=== PATIENT | male | born 1970 | race Caucasian/White ===

== ENCOUNTER 2017-02-23 15:15 | Inpatient (IN) | payer OTHER ==
[~2017-02-23] VITALS: Ht 182.9 cm; Wt 94.7 kg
[2017-02-23 16:44] VITALS: BP 131/83; RESP 18
[2017-02-23 16:48] VITALS: Ht 182.9 cm; Wt 94.7 kg
[2017-02-23] MEDS ORDERED: LORA0.5T PO ×2 (17:03→17:34)
[2017-02-23] MEDS ORDERED: LEVO25TA53 PO (17:03)
[2017-02-23] MEDS ORDERED: METO10TA96 PO (17:03)
[2017-02-23] MEDS ORDERED: LISI10TA2 PO (17:03)
[2017-02-23] MEDS ORDERED: TRAM50TA2 PO ×2 (17:03→17:34)
[2017-02-23] MEDS ORDERED: NACL 0.9% 3 ML SYG IV SCH (17:30)
[2017-02-23 17:45] LABS: BASOPHILS % 0.1 % (0.0-2.0); EOSINOPHILS # 0.1 10^3/ul (0.0-0.5); EOSINOPHILS % 0.6 % (0.0-7.0); HEMATOCRIT 44.3 % (42.0-52.0); HEMOGLOBIN 15.7 g/dl (14.0-18.0); LYMPHOCYTES # 1.4 10^3/ul (0.8-2.9); LYMPHOCYTES % 14.6 % (15.0-51.0); MEAN CORPUSCULAR HEMOGLOBIN 31.2 pg (29.0-33.0); MEAN CORPUSCULAR HGB CONC 35.4 g/dl (32.0-37.0); MEAN CORPUSCULAR VOLUME 87.9 fl (82.0-101.0); MEAN PLATELET VOLUME 9.8 fl (7.4-10.4); MONOCYTE # 0.9 10^3/ul (0.3-0.9); MONOCYTES % 9.1 % (0.0-11.0); NEUTROPHIL # 7.1 10^3/ul (1.6-7.5); NEUTROPHILS % 75.3 % (39.0-77.0); PLATELET COUNT 157 10^3/UL (140-415); RED BLOOD COUNT 5.04 10^6/ul (4.70-6.10); WHITE BLOOD COUNT 9.4 10^3/ul (4.8-10.8)
[2017-02-23 18:02] LABS: INR 1.07; PROTIME 13.9 Sec (12.2-14.2); PT RATIO 1.1
[2017-02-23 18:05] LABS: IRON 29 ug/dl (35-150)
[2017-02-23 18:07] LABS: ALBUMIN 3.2 g/dl (3.3-4.9); ALBUMIN/GLOBULIN RATIO 0.94; BILIRUBIN,INDIRECT 1.2 mg/dl (0-1.1); BILIRUBIN,TOTAL 1.2 mg/dl (0.2-1.3); CREATININE 1.22 mg/dl (0.61-1.24); MAGNESIUM 2.7 mg/dl (1.7-2.5); TOTAL PROTEIN 6.6 g/dl (6.1-8.1)
[2017-02-23 18:13] LABS: POTASSIUM 2.7 mmol/L (3.5-5.1)
[2017-02-23 18:14] LABS: TOTAL IRON BINDING CAPACITY 206 ug/dl (241-421)
--- NOTE | 2017-02-23 18:42 | HP ---
Date/Time of Note Date/Time of Note DATE: 02/23/17 TIME: 18:21 Assessment/Plan VTE Prophylaxis VTE Prophylaxis Intervention: LMWH Assessment/Plan Chief Complaint/Hosp Course 46 yo male with h/o hypothyroidism, sciatica, diverticulitis requiring colostomy s/p reversal 7 years ago who has subsequently suffered recurrent bouts of severe nausea and vomiting leading to profound hypovolemia and electrolyte derangements without explanation who presents with the same. Found to have marked hyponatremia, hypokalemia, and CECILE Nausea and vomiting: - Broad differential but clearly something abnormal with upper GI tract. Gastroparesis is a consideration, but it is odd that it is so episodic and completely resolves between episodes. Celiac disease is a consideration. Cyclic vomiting syndrome a possibility. Gastric outlet obstruction possible. IBS , Crohns possible but unlikely. - First step should likely be EGD: will consult Dr Ortez Hyponatremia: - Clearly hypovolemic, basically resolved w fluids Hypokalemia: - Replete as needed Hypothyroid: - Check TSH, continue LT4 IV Sciatica: - Stable, no complaints now Sinus tachycardia Discharge when stable Problems: HPI/ROS Admit Date/Time Admit Date/Time Feb 23, 2017 at 16:19 Hx of Present Illness 46 yo male with h/o diverticulitis s/p colostomy then reversal 7 years ago, sciatica, hypothyroid, and unclear GI pathology leading to recurrent episodes of n/v causing extreme electrolyte derangement who was transf[facility]rd [facility] for managment of hyponatrmeia, hypokalemia, and CECILE Patient formerly in excellent health until episode of diverticulitis 7 years go. Had colostomy, then reveresed. Since then he says he has had recurrent episodes of extreme nausea and vomiting in which he is not able to eat at all. Becomes extremely dehydrated, requires IV fluids. Episodes seem to last a few days and self resolved. Last time this happened he believes was because of eating pizza heavy in dairy. Has been well for many months, eating normally, no problems. Then says fernando 5 days ago, took tramadol for his sciatica. Since then has been unable to eat. Has very bad postpriandial nausea and fullness leading to vomiting. Does not have any issues with bowel movements, normal stools. No abdominal pain or tenderness. No fevers or other infectious symptoms. Limtied only to nausea and inability to take PO. Went to [place] where he was found to be severely hyponatremic to 127. K 2.6 , CL 72, CO2 40, BUN 43, Creat 1.8. Received zofran, IV fluids, and electrlytes repletion and was transferred here. Seen here on the floor and feeling well now. Denies any current nausea though still very hesitant to eat Says he was told he has "gastroparesis' but no formal testing was done to diagnose this. Has tried reglan per his PMD without success. Never has had endoscopy. PMH/Family/Social Past Medical History Medical History: hypothyroid Past Surgical History Past Surgical Hx: bowel resection Family History Significant Family History: no pertinent family hx Social History Alcohol Use: none Smoking Status: Never smoker Drug Use: none Exam/Review of Systems Vital Signs Vitals Vital Signs Date Time Temp Pulse Resp B/P Pulse Ox O2 Delivery O2 Flow Rate FiO2 02/23/17 16:44 98.7 89 18 131/83 93 Exam Exam Well apperaing, resting comfortably in NAD, AOx3 Well nourished, slightly overweight Pleasant, jovial, appopriate RRR, no m/r/g Lungs clear Abdomen is sof tn tnd, wiht prior surgical scar Ext without edema Labs Result Diagram: 02/23/17173902/23/171739 Medications Medications Current Medications Enoxaparin Sodium (Lovenox) 30 mg DAILY SC ; Start 02/24/17 at 09:00 RAISA MEJIA MD Feb 23, 2017 18:41
[2017-02-23] MEDS ORDERED: POTASSIUM CHLORIDE (SR) 20 MEQ TAB PO STA (18:47)
[2017-02-23 19:58] VITALS: BP 117/72; RESP 16
[2017-02-23 20:47] LABS: BARBITURATES Negative (NEGATIVE); BENZODIAZEPINES Negative (NEGATIVE); CANNABINOIDS Negative (NEGATIVE); COCAINE Negative (NEGATIVE); OPIATES Negative (NEGATIVE)
[2017-02-23] MEDS ORDERED: KETOROLAC 30 MG INJ IV STA (22:10)
[2017-02-23] MEDS ORDERED: ZOLPIDEM 5 MG TAB PO ONE (23:30)
[2017-02-24] VITALS (11 sets, daily range): BP systolic 133–161; BP diastolic 80–103; PULSE 82–99; RESP 14–24
[2017-02-24] MEDS: ONDANSETRON 4 MG INJ IV PRN ×2 (02:06→13:38)
[2017-02-24] MEDS ORDERED: LEVOTHYROXINE 25 MCG TAB ONE (05:51)
[2017-02-24 06:05] LABS: BASOPHILS % 0.1 % (0.0-2.0); EOSINOPHILS # 0.4 10^3/ul (0.0-0.5); EOSINOPHILS % 3.6 % (0.0-7.0); HEMATOCRIT 44.1 % (42.0-52.0); HEMOGLOBIN 15.5 g/dl (14.0-18.0); LYMPHOCYTES # 1.8 10^3/ul (0.8-2.9); LYMPHOCYTES % 18.7 % (15.0-51.0); MEAN CORPUSCULAR HEMOGLOBIN 31.5 pg (29.0-33.0); MEAN CORPUSCULAR HGB CONC 35.1 g/dl (32.0-37.0); MEAN CORPUSCULAR VOLUME 89.6 fl (82.0-101.0); MEAN PLATELET VOLUME 10.4 fl (7.4-10.4); MONOCYTES % 10.6 % (0.0-11.0); NEUTROPHIL # 6.5 10^3/ul (1.6-7.5); NEUTROPHILS % 66.8 % (39.0-77.0); PLATELET COUNT 164 10^3/UL (140-415); RED BLOOD COUNT 4.92 10^6/ul (4.70-6.10); RED CELL DISTRIBUTION WIDTH 14.2 % (11.5-14.5); WHITE BLOOD COUNT 9.7 10^3/ul (4.8-10.8)
[2017-02-24] MEDS: LEVOTHYROXINE 25 MCG TAB PO SCH (06:07)
[2017-02-24 06:37] LABS: ALBUMIN 3.3 g/dl (3.3-4.9); BILIRUBIN,INDIRECT 0.9 mg/dl (0-1.1); BILIRUBIN,TOTAL 0.9 mg/dl (0.2-1.3); CALCIUM 8.5 mg/dl (8.4-10.2); CREATININE 1.15 mg/dl (0.61-1.24); POTASSIUM 3.2 mmol/L (3.5-5.1); TOTAL PROTEIN 6.8 g/dl (6.1-8.1)
[2017-02-24 06:38] LABS: ALBUMIN/GLOBULIN RATIO 0.94
[2017-02-24] MEDS: ENOXAPARIN 30 MG/0.3 ML SYG SC SCH (08:55)
[2017-02-24] MEDS ORDERED: POTASSIUM CHLORIDE (SR) 20 MEQ TAB PO STA (12:41)
--- NOTE | 2017-02-24 12:47 | PN ---
Date/Time of Note Date/Time of Note DATE: 02/24/17 TIME: 12:33 Assessment/Plan VTE Prophylaxis VTE Prophylaxis Intervention: LMWH Lines/Catheters IV [facility]from [facility] Urinary Cath still in place: No Assessment/Plan Assessment/Plan 1. Acute gastritis versus PUD, start on protonix 2. Dehydration, start IVF 3. Hypokalemia, KCL 4. Hypothyroidism, on supplement 6. sciatica 7. H/o diverticulitis requiring colostomy s/p reversal 7 years ago 8. DVT prophylaxis: on lovenox Subjective 24 Hr Interval Summary Free Text/Dictation no abdominal pain. No nausea or vomiting. No diarrhea Exam/Review of Systems Vital Signs Vitals Vital Signs Date Time Temp Pulse Resp B/P Pulse Ox O2 Delivery O2 Flow Rate FiO2 02/24/17 08:01 98.8 96 16 135/103 97 Intake and Output 02/23/17 02/23/17 02/24/17 15:00 23:00 07:00 Intake Total 960 ml Output Total 1100 ml Balance -140 ml Exam Constitutional: alert, oriented, well developed Psych: nl mood/affect, no complaints Head: atraumatic, normocephalic Eyes: EOMI, nl conjunctiva, nl lids ENMT: nl external ears & nose, nl lips & teeth, nl nasal mucosa & septum Neck: non-tender, supple Respiratory: clear to auscultation, normal air movement, No congested cough, No crackles/rales, No diminished breath sounds, No intercostal retraction, No labored breathing, No other, No respirations, No tactile fremitus, No wheezing Cardiovascular: nl pulses, regular rate and rhythm, No S3, No S4, No bruits, No diastolic murmur, No edema, No gallop, No irregular rhythm, No jugular venous distention (JVD), No murmurs/extra sounds, No other, No rub, No systolic murmur Gastrointestinal: nl liver, spleen, non-tender, soft, No ascites, No bowel sounds, No distended, No firm, No hepatomegaly, No mass , No other, No rebound or guarding, No splenomegaly, No surgical scars, No tender Musculoskeletal: nl extremities to inspection Extremities: normal pulses, No calf tenderness, No clubbing, No cyanosis, No edema, No other, No palpable cord, No pitting pedal edema, No tenderness Neurological: NUTRITION FACULTY MEMBER II-XII intact, nl mental status, nl speech, nl strength Skin: nl turgor Lymph: nl lymph nodes Results Result Diagram: 02/24/17 0541 02/24/17 0541 Results 24 hrs Laboratory Tests Test 02/23/17 17:40 02/23/17 19:03 02/24/17 05:41 White Blood Count 9.4 9.7 Red Blood Count 5.04 4.92 Hemoglobin 15.7 15.5 Hematocrit 44.3 44.1 Mean Corpuscular Volume 87.9 89.6 Mean Corpuscular Hemoglobin 31.2 31.5 Mean Corpuscular Hemoglobin Concent 35.4 35.1 Red Cell Distribution Width 14.0 14.2 Platelet Count 157 164 Mean Platelet Volume 9.8 10.4 Neutrophils % 75.3 66.8 Lymphocytes % 14.6 L 18.7 Monocytes % 9.1 10.6 Eosinophils % 0.6 3.6 Basophils % 0.1 0.1 Nucleated Red Blood Cells % 0.0 0.0 Neutrophils # 7.1 6.5 Lymphocytes # 1.4 1.8 Monocytes # 0.9 1.0 H Eosinophils # 0.1 0.4 Basophils # 0.0 0.0 Nucleated Red Blood Cells # 0.0 0.0 Prothrombin Time 13.9 Prothrombin Time Ratio 1.1 INR International Normalized Ratio 1.07 Sodium Level 130 L 133 L Potassium Level 2.7 *L 3.2 L Chloride Level 86 L 88 L Carbon Dioxide Level 39 H 42 *H Anion Gap 8 6 L Blood Urea Nitrogen 38 H 32 H Creatinine 1.22 1.15 Glucose Level 101 102 Hemoglobin A1c 5.5 Calcium Level 8.0 L 8.5 Magnesium Level 2.7 H Iron Level 29 L Total Iron Binding Capacity 206 L Percent Iron Saturation 14 L Ferritin 472.0 H Total Bilirubin 1.2 0.9 Direct Bilirubin 0.00 0.00 Indirect Bilirubin 1.2 H 0.9 Aspartate Amino Transf (AST/SGOT) 28 30 Alanine Aminotransferase (ALT/SGPT) 40 44 Alkaline Phosphatase 88 92 Total Protein 6.6 6.8 Albumin 3.2 L 3.3 Globulin 3.40 H 3.50 H Albumin/Globulin Ratio 0.94 0.94 Thyroid Stimulating Hormone (TSH) 0.316 L Urine Opiates Screen Negative Urine Barbiturates Negative Urine Amphetamines Screen Negative Urine Benzodiazepines Screen Negative Urine Cocaine Screen Negative Urine Cannabinoids Negative Random Cortisol 17.1 Medications Medications Current Medications Enoxaparin Sodium (Lovenox) 30 mg DAILY SC Last administered on 02/24/17 08:55 ; Admin Dose 30 MG; Start 02/24/17 at 09:00 Ondansetron HCl (Zofran Inj) 4 mg Q4H PRN IV NAUSEA AND/OR VOMITING Last administered on 02/24/17 02:06; Admin Dose 4 MG; Start 02/23/17 at 22:30 Miscellaneous Information Patients own medicat... BID@ XX ; Start 02/24/17 at 10:00 Ketorolac Tromethamine (Toradol) 15 mg Q6H PRN IV PAIN; Start 02/24/17 at 11:00 ; Stop 02/27/17 at 10:59 ABRAHAM RODRÍGUEZ MD Feb 24, 2017 12:43
[2017-02-24] MEDS ORDERED: PANTOPRAZOLE (EC) 40 MG TAB PO SCH (13:00)
[2017-02-24] MEDS: NS + KCL 20 MEQ 1,000 ML IV SCH (13:38)
[2017-02-24] MEDS ORDERED: PROPOFOL 20 ML ONE ×2 (17:11→17:28)
--- NOTE | 2017-02-24 17:12 | CONS ---
Date/Time of Note Date/Time of Note DATE: 02/24/17 TIME: 17:11 Assessment/Plan Assessment/Plan Chief Complaint/Hosp Course CHIEF COMPLAINT (H&P) OR REASON FOR CONSULTATION (CONS): Persistent nausea and vomiting HISTORY OF PRESENT ILLNESS Pleasant 46-year-old male with previous history of diverticulitis with perforation requiring colostomy which was reversed approximately 7 years prior. The patient states that since that time he has episodes of persistent nausea and vomiting the last several days and result in dehydration and eventual hospitalization. The patient states this has occurred at least 5 times. The patient also states that he has never had a specific workup for this and once he gets better he is discharged from previous hospitals. The patient denies abdominal pain denies bilious vomiting. He describes his vomiting us shortly after eating his stomach rejects whatever he ate and brings of back. There is no overt gastrointestinal bleeding i.e. hematemesis, melena or hematochezia. There is no fever, chills or diaphoresis. The patient denies history of reflux symptoms such as pyrosis, regurgitation. He actually normally has no GI symptoms other than bloating which appears to be a chronic symptom for him. His bowel movements are regular and have remained regular during this period of time. The patient will be evaluated endoscopically to rule out structural abnormalities that may explain the patient's persistent nausea and vomiting such as GERD/PUD/gastric outlet obstruction. Of note the patient denies use of any drugs including marijuana therefore the possibility of cannabis hyperemesis syndrome is discarded. REVIEW OF SYSTEMS: [] GASTROINTESTINAL AND LIVER: Positive for nausea and vomiting. Otherwise negative for: Anorexia, dysphagia, odynophagia, pyrosis, regurgitation, early satiety, bloating, abdominal pain, food intolerance, diarrhea, constipation, change in Bowel Habits, laxative use, hematemesis, melena, hematochezia, anorectal symptoms, incontinence, jaundice. GENERAL AND CONSTITUTIONAL: Negative for: Weakness, tiredness, fever, chills, weight loss, weight gain, skin lesions. New mass, adenopathy. HEENT: Negative for: Headaches, vision changes, icterus, hearing loss, dizziness , vertigo, earache, sore throat. CARDIOVASCULAR: Negative for: Chest pain, SOB, TOUSSAINT, orthopnea, palpitations, lightheadedness, edemas, claudication. RESPIRATORY: Negative for: SOB, cough, sputum production, hemoptysis, pleuritic chest pain, wheezing. GENITOURINARY: Negative for: Dysuria, hematuria, flank pain, urgency, nocturia, polyuria. MUSCULO-SKELETAL: Negative for: Bone pain, arthralgias, deformity, myalgias. HEMATOLOGIC-LYMPHATIC: Negative for: Echymosis, petechia, excessive bleeding, adenopathy, new mass. NEURO-PSYCHIATRIC: Negative for: Syncope, seizures, focal weakness, numbness, depression, anxiety, insomnia, hallucinations, delusions. GYNECOLOGICAL: Negative for: Menorrhagia, irregular menses, dysmenorrheal, dyspareunia PAST MEDICAL HISTORY: Diverticulitis with perforation requiring colostomy and reanastomosis 7 years prior Hypertension Hypothyroidism MEDICAL: Benign SURGICAL: None TRANSFUSIONS: None TATOOS: None HABITS: No smoking, alcohol abuse or drug use SMOKING: Negative ALCOHOL: Negative DRUGS: Negative MEDICATION HISTORY: ALLERGIES: No known allergies CURRENT MEDICATIONS: Thyroid supplements and high blood pressure meds. No NSAIDs or other ulcerogenic's SOCIAL HISTORY: Employed FAMILY HISTORY: Negative for gastrointestinal neoplasm, non contributory PHYSICAL EXAMINATION: GENERAL: Well developed, well nourished, alert & oriented x 3, in no acute distress SKIN: No lesions, no stigmata chronic liver disease, no evidence of bleeding diathesis LYMPHATIC: No palpable lymphadenopathy. HEAD: Normocephalic, atraumatic, no tenderness. EYES: Pupils equal reactive to light and accommodation, full extraocular movements, sclera clear, non-icteric, no discharge. EARS/NOSE AND THROAT: Ears normal, nose normal, oropharynx normal, oral membranes well hydrated without lesions. NECK: Supple, no masses, thyroid normal, JVP within normal limits, carotids normal without bruits. CHEST: Inspection within normal limits, breasts grossly normal. CARDIOVASCULAR: Heart: Regular rate and rhythm, no murmurs, gallops or rubs. Peripheral pulses present within normal limits, no cyanosis, clubbing or edemas. No pulsatile abdominal mass RESPIRATORY: Lungs clear to auscultation and percussion, no wheezing, no rubs GASTROINTESTINAL AND LIVER: Abdomen: Soft, non tender, non-distended, no hernias , no masses, no organomegaly, no ascites, no guarding, no rebound tenderness, normoactive bowel sounds. Rectal: no perianal disease, no masses, stool normal, occult blood negative. GENITOURINARY: (MALE) Male genitalia within normal limits, Prostate normal for age. MUSCULO-SKELETAL: Gait and station within normal limits, range of motion adequate. NEUROLOGIC: Cranial nerves II-XII intact, Motor within normal limits, Sensory within normal limits. Reflexes within normal limits. PSYCHIATRIC: Alert & oriented x 3, mood/affect/judgement adequate IMPRESSION: Persistent nausea and vomiting, episodic occurrences Rule out structural abnormalities such as GERD/PUD/gastric outlet obstruction /neoplasm Rule out high small bowel obstruction If all above ruled out consider cyclic vomiting syndrome DISCUSSION & RECOMMENDATIONS: EGD today, procedure explained to the patient in detail including risks, benefits and alternatives. Agreeable to proceed Further recommendation will depend her findings as well as patient's clinical course HARRIET almanzar. Dr. Ortez's office Fax copy to Attn Medical Records Problems: Consultation Date/Type/Reason Admit Date/Time Feb 23, 2017 at 16:19 Psychological: nl mood/affect, no complaints Exam/Review of Systems Vital Signs Vitals Vital Signs Date Time Temp Pulse Resp B/P Pulse Ox O2 Delivery O2 Flow Rate FiO2 02/24/17 14:29 98.8 85 17 149/92 93 Intake and Output 02/23/17 02/23/17 02/24/17 15:00 23:00 07:00 Intake Total 960 ml Output Total 1100 ml Balance -140 ml Results Result Diagram: 02/24/17 0541 02/24/17 0541 Results 24 hrs Laboratory Tests Test 02/23/17 17:40 02/23/17 19:03 02/24/17 05:41 White Blood Count 9.4 9.7 Red Blood Count 5.04 4.92 Hemoglobin 15.7 15.5 Hematocrit 44.3 44.1 Mean Corpuscular Volume 87.9 89.6 Mean Corpuscular Hemoglobin 31.2 31.5 Mean Corpuscular Hemoglobin Concent 35.4 35.1 Red Cell Distribution Width 14.0 14.2 Platelet Count 157 164 Mean Platelet Volume 9.8 10.4 Neutrophils % 75.3 66.8 Lymphocytes % 14.6 L 18.7 Monocytes % 9.1 10.6 Eosinophils % 0.6 3.6 Basophils % 0.1 0.1 Nucleated Red Blood Cells % 0.0 0.0 Neutrophils # 7.1 6.5 Lymphocytes # 1.4 1.8 Monocytes # 0.9 1.0 H Eosinophils # 0.1 0.4 Basophils # 0.0 0.0 Nucleated Red Blood Cells # 0.0 0.0 Prothrombin Time 13.9 Prothrombin Time Ratio 1.1 INR International Normalized Ratio 1.07 Sodium Level 130 L 133 L Potassium Level 2.7 *L 3.2 L Chloride Level 86 L 88 L Carbon Dioxide Level 39 H 42 *H Anion Gap 8 6 L Blood Urea Nitrogen 38 H 32 H Creatinine 1.22 1.15 Glucose Level 101 102 Hemoglobin A1c 5.5 Calcium Level 8.0 L 8.5 Magnesium Level 2.7 H Iron Level 29 L Total Iron Binding Capacity 206 L Percent Iron Saturation 14 L Ferritin 472.0 H Total Bilirubin 1.2 0.9 Direct Bilirubin 0.00 0.00 Indirect Bilirubin 1.2 H 0.9 Aspartate Amino Transf (AST/SGOT) 28 30 Alanine Aminotransferase (ALT/SGPT) 40 44 Alkaline Phosphatase 88 92 Total Protein 6.6 6.8 Albumin 3.2 L 3.3 Globulin 3.40 H 3.50 H Albumin/Globulin Ratio 0.94 0.94 Thyroid Stimulating Hormone (TSH) 0.316 L Urine Opiates Screen Negative Urine Barbiturates Negative Urine Amphetamines Screen Negative Urine Benzodiazepines Screen Negative Urine Cocaine Screen Negative Urine Cannabinoids Negative Random Cortisol 17.1 Medications Medications Current Medications Enoxaparin Sodium (Lovenox) 30 mg DAILY SC Last administered on 02/24/17 08:55 ; Admin Dose 30 MG; Start 02/24/17 at 09:00 Ondansetron HCl (Zofran Inj) 4 mg Q4H PRN IV NAUSEA AND/OR VOMITING Last administered on 02/24/17 13:38; Admin Dose 4 MG; Start 02/23/17 at 22:30 Miscellaneous Information Patients own medicat... BID@10,16 XX ; Start 02/24/17 at 10:00 Ketorolac Tromethamine (Toradol) 15 mg Q6H PRN IV PAIN; Start 02/24/17 at 11:00 ; Stop 02/27/17 at 10:59 Pantoprazole 40 mg 40 mg DAILY PO ; Start 02/24/17 at 13:00 Potassium Chloride/Sodium Chloride (NS-KCl 20 Meq) 1,000 ml @ 100 mls/hr Q10H IV Last administered on 02/24/17 13:38; Admin Dose 100 MLS/HR; Start 02/24/17 at 13:00 HARRIET ORTEZ MD Feb 24, 2017 17:12 at 10:00 Ketorolac Tromethamine (Toradol) 15 mg Q6H PRN IV PAIN; Start 02/24/17 at 11:00 ; Stop 02/27/17 at 10:59 Pantoprazole 40 mg 40 mg DAILY PO ; Start 02/24/17 at 13:00 Potassium Chloride/Sodium Chloride (NS-KCl 20 Meq) 1,000 ml @ 100 mls/hr Q10H IV Last administered on 02/24/17 13:38; Admin Dose 100 MLS/HR; Start 02/24/17 at 13:00 HARRIET ORTEZ MD Feb 24, 2017 17:12
--- NOTE | 2017-02-24 17:36 | OPPN ---
Date/Time of Note Date/Time of Note DATE: 02/24/17 TIME: 17:30 Proc Note GI Procedure Date 02/24/17 Pre-procedure Diagnosis * Nausea and vomiting Post-procedure Diagnosis Assessment: * Severe ulcerated esophagitis. Biopsies obtained. * Rule out Francesca esophagitis * Small hiatal hernia * Small antral gastric ulcer. No stigmata recent bleeding. Benign endoscopic appearance. * Rule out H. pylori. Biopsies obtained Plan: * Protonix 40 mg IV twice daily * Reglan 10 mg IV every 6 hours * Advance diet as tolerated * Review pathology once able to tolerate a diet switch to oral Protonix and Reglan . Procedure Performed: Endoscopy (With biopsies) Surgeon HARRIET SANDERS MD Recreation Adviser none Tourniquet Time none EBL none Transfusion required none Biopsy 1: Gastric body and antrum/rule out H. pylori infection Biopsy 2: Distal esophagus/rule out Francesca esophagitis Grafts/Implants none Tubes/Drains none Complication(s) none Pt Condition post procedure: stable Disposition: PACU Indications: persistent vomiting Procedure Description After informed consent, with the patient/relatives understanding the procedure, its indications, potential risks and complications, including but not limited to : allergic reaction, bleeding, perforation or infection, and after all pertinent questions were answered to the patients satisfaction, the patient/ relatives signed witnessed informed consent. Following this, premedication was administered slowly IV push under careful cardiovascular and respiratory monitoring with pulse oximetry, automatic blood pressure, and classroom monitor. Once the sedative effect was achieved the patient was place in the left lateral decubitus, the panendoscope was introduced and advanced under visual control. Careful examination of the upper gastrointestinal tract, both on insertion as well as withdrawal of the instrument disclosing the following findings: ESOPHAGUS: the mucosa of the entire esophagus was carefully examined and showed the following findings: There is severe ulceration in the distal third of the esophagus. Biopsies were obtained to rule out superimposed Francesca infection. Otherwise the mucosa appears within normal limits. There is no evidence of varices, neoplasm, or stricture. Small hiatal Hernia identified. STOMACH: Upon entrance to the stomach air was insufflated, the gastric blackburn distended normally. The mucosa of the fundus, body and antrum of the stomach was carefully examined both head-on and on retroflexion, and showed the following findings: There is a small stellate ulceration in the antrum of the stomach. Benign endoscopic appearance. No stigmata recent bleeding. Biopsies were obtained to rule out H. pylori infection. Otherwise the mucosa appears within normal limits with no abnormalities. There is no evidence of neoplasm. PYLORUS: The pylorus was carefully examined and showed the following findings: the pylorus appears patent and within normal limits, with no evidence of gastric outlet obstruction. DUODENUM: The duodenal mucosa was carefully examined in the duodenal bulb as well as the second portion of the duodenum and showed the following findings: the mucosa appears unremarkable with no evidence of duodenitis, ulcer or neoplasm. Copies To: CC: HARRIET SANDERS MD, MORDO MD Feb 24, 2017 17:36
[2017-02-24] MEDS: METOCLOPRAMIDE 10 MG INJ IV SCH ×2 (18:37→23:51)
[2017-02-24] MEDS: PANTOPRAZOLE 40 MG INJ IV SCH (18:37)
[2017-02-24] MEDS ORDERED: POTASSIUM CHLORIDE 20 MEQ POWDER FOR ORAL SOLN PO ONE (19:00)
[2017-02-24] MEDS: KETOROLAC 15 MG INJ IV PRN (19:45)
[2017-02-24] MEDS ORDERED: ZOLPIDEM 5 MG TAB PO ONE (21:00)
[2017-02-24] MEDS ORDERED: ZOLPIDEM 5 MG TAB PO PRN (22:00)
[2017-02-25] MEDS: KETOROLAC 15 MG INJ IV PRN ×3 (01:44→14:22)
[2017-02-25] MEDS: NS + KCL 20 MEQ 1,000 ML IV SCH ×3 (01:45→12:05)
[2017-02-25 02:00] VITALS: BP 156/98; RESP 18
[2017-02-25] MEDS ORDERED: LORAZEPAM 0.5 MG TAB PO PRN (02:00)
[2017-02-25] MEDS: PANTOPRAZOLE 40 MG INJ IV SCH (06:04)
[2017-02-25] MEDS: METOCLOPRAMIDE 10 MG INJ IV SCH ×2 (06:04→12:05)
[2017-02-25] MEDS: LEVOTHYROXINE 25 MCG TAB PO SCH (06:40)
[2017-02-25 07:12] LABS: CALCIUM 8.3 mg/dl (8.4-10.2); CREATININE 1.02 mg/dl (0.61-1.24); POTASSIUM 3.7 mmol/L (3.5-5.1)
[2017-02-25 07:25] VITALS: BP 174/103; RESP 16
[2017-02-25] MEDS: ENOXAPARIN 30 MG/0.3 ML SYG SC SCH (08:04)
[2017-02-25] MEDS ORDERED: LISINOPRIL 10 MG TAB PO SCH (10:00)
[2017-02-25] MEDS ORDERED: PANT40TA3 PO (13:50)
[2017-02-25] MEDS ORDERED: LISI20TA11 PO (13:50)
[2017-02-25] MEDS ORDERED: LISINOPRIL 10 MG TAB PO ONE (14:00)
--- NOTE | 2017-02-25 14:02 | DS ---
Date/Time of Note Date/Time of Note DATE: 02/25/17 TIME: 13:54 Discharge Summary Admission/Discharge Info Admit Date/Time Feb 23, 2017 at 16:19 Discharge Date/Time Discharge Diagnosis 1. Ulcerative esophagitis and gastric ulcer, protonix and reglan 2. Dehydration, resolved 3. Hypokalemia, corrected 4. Hypothyroidism, astable on supplement 6. sciatica, follow up with PCP 7. H/o diverticulitis requiring colostomy s/p reversal 7 years ago Patient Condition: Stable Procedures Date/Time of Note Date/Time of Note DATE: 02/24/17 TIME: 17:30 Proc Note GI Procedure Date 02/24/17 Pre-procedure Diagnosis * Nausea and vomiting Post-procedure Diagnosis Assessment: * Severe ulcerated esophagitis. Biopsies obtained. * Rule out Francesca esophagitis * Small hiatal hernia * Small antral gastric ulcer. No stigmata recent bleeding. Benign endoscopic appearance. * Rule out H. pylori. Biopsies obtained Plan: * Protonix 40 mg IV twice daily * Reglan 10 mg IV every 6 hours * Advance diet as tolerated * Review pathology once able to tolerate a diet switch to oral Protonix and Reglan . Procedure Performed: Endoscopy (With biopsies) Surgeon HARRIET ORTEZ MD Sales Order Processor none Tourniquet Time none EBL none Transfusion required none Biopsy 1: Gastric body and antrum/rule out H. pylori infection Biopsy 2: Distal esophagus/rule out Francesca esophagitis Grafts/Implants none Tubes/Drains none Complication(s) none Pt Condition post procedure: stable Disposition: PACU Indications: persistent vomiting Procedure Description After informed consent, with the patient/relatives understanding the procedure, its indications, potential risks and complications, including but not limited to : allergic reaction, bleeding, perforation or infection, and after all pertinent questions were answered to the patients satisfaction, the patient/ relatives signed witnessed informed consent. Following this, premedication was administered slowly IV push under careful cardiovascular and respiratory monitoring with pulse oximetry, automatic blood pressure, and athletic monitor. Once the sedative effect was achieved the patient was place in the left lateral decubitus, the panendoscope was introduced and advanced under visual control. Careful examination of the upper gastrointestinal tract, both on insertion as well as withdrawal of the instrument disclosing the following findings: ESOPHAGUS: the mucosa of the entire esophagus was carefully examined and showed the following findings: There is severe ulceration in the distal third of the esophagus. Biopsies were obtained to rule out superimposed Francesca infection. Otherwise the mucosa appears within normal limits. There is no evidence of varices, neoplasm, or stricture. Small hiatal Hernia identified. STOMACH: Upon entrance to the stomach air was insufflated, the gastric blackburn distended normally. The mucosa of the fundus, body and antrum of the stomach was carefully examined both head-on and on retroflexion, and showed the following findings: There is a small stellate ulceration in the antrum of the stomach. Benign endoscopic appearance. No stigmata recent bleeding. Biopsies were obtained to rule out H. pylori infection. Otherwise the mucosa appears within normal limits with no abnormalities. There is no evidence of neoplasm. PYLORUS: The pylorus was carefully examined and showed the following findings: the pylorus appears patent and within normal limits, with no evidence of gastric outlet obstruction. DUODENUM: The duodenal mucosa was carefully examined in the duodenal bulb as well as the second portion of the duodenum and showed the following findings: the mucosa appears unremarkable with no evidence of duodenitis, ulcer or neoplasm. Copies To: CC: HARRIET ORTEZ MD, MORDO MD Feb 24, 2017 17:36 <Electronically signed by HARRIET ORTEZ MD> 02/24/17 4798 Hx of Present Illness 46 yo male with h/o diverticulitis s/p colostomy then reversal 7 years ago, sciatica, hypothyroid, and unclear GI pathology leading to recurrent episodes of n/v causing extreme electrolyte derangement who was transffererd from [facility] for managment of hyponatrmeia, hypokalemia, and CECILE Patient formerly in excellent health until episode of diverticulitis 7 years go. Had colostomy, then reveresed. Since then he says he has had recurrent episodes of extreme nausea and vomiting in which he is not able to eat at all. Becomes extremely dehydrated, requires IV fluids. Episodes seem to last a few days and self resolved. Last time this happened he believes was because of eating pizza heavy in dairy. Has been well for many months, eating normally, no problems. Then says habjustin 5 days ago, took tramadol for his sciatica. Since then has been unable to eat. Has very bad postpriandial nausea and fullness leading to vomiting. Does not have any issues with bowel movements, normal stools. No abdominal pain or tenderness. No fevers or other infectious symptoms. Limtied only to nausea and inability to take PO. Went to [place] where he was found to be severely hyponatremic to 127. K 2.6 , CL 72, CO2 40, BUN 43, Creat 1.8. Received zofran, IV fluids, and electrlytes repletion and was transferred here. Seen here on the floor and feeling well now. Denies any current nausea though still very hesitant to eat Says he was told he has "gastroparesis' but no formal testing was done to diagnose this. Has tried reglan per his PMD without success. Never has had endoscopy. Hospital Course Pleasant 46-year-old male with previous history of diverticulitis with perforation requiring colostomy which was reversed approximately 7 years prior. The patient states that since that time he has episodes of persistent nausea and vomiting the last several days and result in dehydration and eventual hospitalization. The patient states this has occurred at least 5 times. The patient also states that he has never had a specific workup for this and once he gets better he is discharged from previous hospitals. The patient denies abdominal pain denies bilious vomiting. He describes his vomiting us shortly after eating his stomach rejects whatever he ate and brings of back. There is no overt gastrointestinal bleeding i.e. hematemesis, melena or hematochezia. There is no fever, chills or diaphoresis. The patient denies history of reflux symptoms such as pyrosis, regurgitation. He actually normally has no GI symptoms other than bloating which appears to be a chronic symptom for him. His bowel movements are regular and have remained regular during this period of time. The patient will be evaluated endoscopically to rule out structural abnormalities that may explain the patient's persistent nausea and vomiting such as GERD/PUD/gastric outlet obstruction. Of note the patient denies use of any drugs including marijuana therefore the possibility of cannabis hyperemesis syndrome is discarded. For nausea and vomiting, patient is treated with protonix and reglan, symptoms resolved. EGD done on revealed severe ulcerative esophagitis and a small gastric ulcer. Patient will be on double dosage of protoinix along with reglan and follow up with Dr. Ortez for biopsy results. Patient had hypokalemia from GI loss and poor intake/dehydration. that is corrected with supplement. Home Meds Active Scripts Pantoprazole* (Protonix*) 40 Mg Tablet.dr, 40 MG PO BID for 30 Days, TAB Prov:ABRAHAM RODRÍGUEZ MD 02/25/17 Lisinopril* (Lisinopril*) 20 Mg Tablet, 20 MG PO DAILY, #30 TAB Prov:ABRAHAM RODRÍGUEZ MD 02/25/17 Reported Medications Lorazepam* (Lorazepam*) 0.5 Mg Tablet, 0.5 MG PO BID Y for ANXIETY, TAB 02/23/17 Tramadol HCl (Tramadol HCl) 50 Mg Tablet, 50 MG PO BID Y for PAIN, #120 TAB 02/23/17 Metoclopramide Hcl* (Metoclopramide Hcl*) 10 Mg Tablet, 10 MG PO Q6H, TAB 02/23/17 Levothyroxine Sodium* (Levothyroxine Sodium*) 25 Mcg Tablet, 25 MCG PO BEFORE BREAKFAST, #30 TAB 02/23/17 Discontinued Reported Medications Lisinopril* (Lisinopril*) 10 Mg Tablet, 10 MG PO DAILY, #30 TAB 02/23/17 Follow-up Plan PCP in one week HIRO Ortez in one week Primary Care Provider Skyla Correa Pending Labs Laboratory Tests Test 02/25/17 04:33 Sodium Level 138mmol/L (135-144) Potassium Level 3.7mmol/L (3.5-5.1) Chloride Level 97mmol/L (97-110) Carbon Dioxide Level 34mmol/L (21-31) Anion Gap 11 (8-16) Blood Urea Nitrogen 22mg/dl (7-20) Creatinine 1.02mg/dl (0.61-1.24) Glucose Level 93mg/dl (70-220) Calcium Level 8.3mg/dl (8.4-10.2) ABRAHAM RODRÍGUEZ MD Feb 25, 2017 14:02
[2017-02-25 14:05] VITALS: BP 162/98; RESP 16
--- NOTE | 2017-02-26 14:05 | RADRPT ---
Vent Rate: 80 bpm RR Interval: 0 msec ME Interval: 144 msec QRS Duration: 90 msec QT Interval: 412 msec QTC Interval: 475 msec P-R-T [place]: 44 - -17 - 17 degrees Normal sinus rhythm Possible Left atrial enlargement Anterior infarct , age undetermined Abnormal ECG Electronically Signed By: Georgi Glynn [id number]
== END 2017-02-25 17:13 | disposition home or self-care (01) | DRG 381 ==
LOC: PP2 16:19
PROVIDERS: ADMIT Internal Medicine; ATTEND Internal Medicine
PROC: 0DB78ZX Excision of Stomach, Pylorus, Via Natural or Artificial Opening Endoscopic, Diagnostic (ICD-10-PCS; 2017-02-24)
PROC: 0DB38ZX Excision of Lower Esophagus, Via Natural or Artificial Opening Endoscopic, Diagnostic (ICD-10-PCS; principal; 2017-02-24 18:00)
DX: K22.10 Ulcer of esophagus without bleeding (principal); N17.9 Acute kidney failure, unspecified; E87.1 Hypo-osmolality and hyponatremia; K25.9 Gastric ulcer, unspecified as acute or chronic, without hemorrhage or perforation; E86.1 Hypovolemia; E86.0 Dehydration; E87.6 Hypokalemia; E03.9 Hypothyroidism, unspecified; M54.30 Sciatica, unspecified side; K44.9 Diaphragmatic hernia without obstruction or gangrene
CPT/HCPCS: 80048; 80053; 80307; 82533; 82728; 83036; 83540; 83735; 84443; 85025; 85610; 87081; 88305; 88312; 88313; 93005; C9113; J1650; J1885; J2405; J2765; J3480

== ENCOUNTER 2017-10-03 11:38 | Emergency (ER) | END 2017-10-03 15:15 | disposition home or self-care (01) ==

== ENCOUNTER 2017-12-11 05:36 | Inpatient (IN) | END 2017-12-13 17:50 | disposition home or self-care (01) | DRG 470 ==

== ENCOUNTER 2018-01-08 05:54 | Inpatient (IN) | END 2018-01-09 14:55 | disposition home or self-care (01) | DRG 470 ==

== ENCOUNTER 2019-03-23 15:21 | Inpatient (IN) | payer MEDICARE, MEDICAID ==
[~2019-03-23] VITALS: Ht 182.9 cm; Wt 98.7 kg
[~2019-03-23 15:21] MED LIST: ALBU18HF INHALATION; CARAS PO; DOCU-159 PO; LEVO25TA6 PO; LISI-471 PO; LORA0.5T PO; METO10TA3 PO; ONDA4TAB14 PO; OXYC-431 PO; POLY17PO6 PO; TRAM50TA2 PO
[2019-03-23 15:37] VITALS: Ht 182.9 cm; Wt 98.7 kg
[2019-03-23] MEDS ORDERED: SOD CHLORIDE 0.9% 1,000 ML IV STA ×3 (16:02→19:46)
[2019-03-23] MEDS ORDERED: ONDANSETRON 4 MG INJ IV STA (16:02)
[2019-03-23] MEDS ORDERED: METOCLOPRAMIDE 10 MG INJ IV ONE (18:30)
[2019-03-23] MEDS ORDERED: LORAZEPAM 2 MG INJ IV ONE (20:00)
[2019-03-23] MEDS ORDERED: ONDANSETRON 4 MG INJ IV PRN (22:00)
[2019-03-23] MEDS ORDERED: ACETAMINOPHEN 325 MG TAB PO PRN ×2 (22:00→23:00)
[2019-03-23] MEDS ORDERED: traMADol 50 MG TAB PO PRN (23:00)
[2019-03-23] MEDS ORDERED: DEXTROSE 5%-0.45% NACL 1,000 ML IV SCH (23:00)
[2019-03-23] MEDS: LORAZEPAM 0.5 MG TAB PO SCH (23:06)
[2019-03-23] MEDS: hydrALAzine 20 MG INJ IV PRN (23:17)
[2019-03-24] MEDS: LORAZEPAM 2 MG INJ IV PRN (01:00)
[2019-03-24 04:00] VITALS: BP 164/82; PULSE 139; RESP 20
[2019-03-24 07:41] VITALS: BP 168/114; PULSE 129; RESP 18
[2019-03-24] MEDS: LEVOTHYROXINE 25 MCG TAB PO SCH (08:21)
[2019-03-24] MEDS: LISINOPRIL 20 MG TAB PO SCH (08:22)
[2019-03-24] MEDS: LORAZEPAM 0.5 MG TAB PO SCH ×2 (08:22→21:20)
[2019-03-24] MEDS: morphine 4 MG/ML VIAL IV PRN ×3 (08:23→18:48)
[2019-03-24] MEDS: ONDANSETRON 4 MG INJ IV PRN (08:24)
[2019-03-24 11:00] VITALS: BP 164/113; PULSE 113
[2019-03-24 12:35] VITALS: BP 167/112; PULSE 116
[2019-03-24] MEDS ORDERED: METOCLOPRAMIDE 10 MG INJ IV PRN (13:00)
[2019-03-24] MEDS: D5W-0.45 NACL + KCL 20 MEQ 1,000 ML IV SCH ×2 (13:27→23:30)
[2019-03-24] MEDS ORDERED: hydrALAzine 20 MG INJ IV PRN (13:30)
[2019-03-24] MEDS ORDERED: SOD CHLORIDE 0.9% 500 ML IV ONE (13:30)
[2019-03-24 15:17] VITALS: BP 159/103; PULSE 119; RESP 18
[2019-03-24] MEDS: SUCRALFATE (100 MG/ML) 10ML CUP PO SCH ×2 (17:48→21:20)
[2019-03-24] MEDS: PANTOPRAZOLE 40 MG INJ IV SCH (17:49)
[2019-03-24 20:53] VITALS: BP 151/105; PULSE 96; RESP 18
[2019-03-25] VITALS (12 sets, daily range): BP systolic 114–173; BP diastolic 78–113; PULSE 82–107; RESP 16–86
[2019-03-25] MEDS: traMADol 50 MG TAB PO PRN (03:07)
[2019-03-25] MEDS: ONDANSETRON 4 MG INJ IV PRN (03:10)
[2019-03-25] MEDS: PANTOPRAZOLE 40 MG INJ IV SCH ×2 (05:47→14:50)
[2019-03-25] MEDS: D5W-0.45 NACL + KCL 20 MEQ 1,000 ML IV SCH ×3 (08:19→18:49)
[2019-03-25] MEDS: LEVOTHYROXINE 25 MCG TAB PO SCH (08:29)
[2019-03-25] MEDS: SUCRALFATE (100 MG/ML) 10ML CUP PO SCH ×4 (08:29→20:31)
[2019-03-25] MEDS: LISINOPRIL 20 MG TAB PO SCH (08:29)
[2019-03-25] MEDS: LORAZEPAM 0.5 MG TAB PO SCH ×2 (08:29→20:31)
[2019-03-25] MEDS: hydrALAzine 20 MG INJ IV PRN (08:30)
[2019-03-25] MEDS ORDERED: POTASSIUM CHLORIDE 100 ML IVPB ONE (14:00)
[2019-03-25] MEDS ORDERED: PROPOFOL 40 ML ONE (16:45)
[2019-03-25] MEDS ORDERED: LIDOCAINE 2% (SDV) 5 ML INJ ONE (16:45)
[2019-03-25] MEDS: POLYETHYLENE GLYCOL 17 GM PACKET PO PRN (18:32)
[2019-03-25] MEDS: morphine 4 MG/ML VIAL IV PRN (18:32)
[2019-03-25] MEDS: DOCUSATE SODIUM 100 MG CAP PO SCH (20:32)
[2019-03-26 00:21] VITALS: BP 169/93; PULSE 109; RESP 18
[2019-03-26] MEDS: traMADol 50 MG TAB PO PRN (00:42)
[2019-03-26] MEDS: hydrALAzine 20 MG INJ IV PRN (00:44)
[2019-03-26] MEDS: D5W-0.45 NACL + KCL 20 MEQ 1,000 ML IV SCH ×2 (00:52→16:32)
[2019-03-26 05:39] VITALS: BP 156/86; PULSE 113; RESP 20
[2019-03-26] MEDS: POLYETHYLENE GLYCOL 17 GM PACKET PO PRN (05:43)
[2019-03-26] MEDS: PANTOPRAZOLE 40 MG INJ IV SCH ×2 (05:43→18:03)
[2019-03-26] MEDS: LORAZEPAM 2 MG INJ IV PRN (06:12)
[2019-03-26 07:22] VITALS: BP 164/95; PULSE 122; RESP 22
[2019-03-26] MEDS: DOCUSATE SODIUM 100 MG CAP PO SCH ×2 (09:23→20:48)
[2019-03-26] MEDS: LEVOTHYROXINE 25 MCG TAB PO SCH (09:23)
[2019-03-26] MEDS: SUCRALFATE (100 MG/ML) 10ML CUP PO SCH ×4 (09:23→20:48)
[2019-03-26] MEDS: LORAZEPAM 0.5 MG TAB PO SCH ×2 (09:23→20:49)
[2019-03-26] MEDS: LISINOPRIL 20 MG TAB PO SCH (09:24)
[2019-03-26 11:29] VITALS: BP 138/88; PULSE 108; RESP 22
[2019-03-26] MEDS: METOCLOPRAMIDE 10 MG TAB PO SCH ×2 (15:01→22:51)
[2019-03-26] MEDS: morphine 4 MG/ML VIAL IV PRN ×2 (15:01→20:49)
[2019-03-26 15:14] VITALS: BP 139/93; PULSE 101; RESP 22
[2019-03-26 19:47] VITALS: BP 140/94; PULSE 97; RESP 18
[2019-03-27] VITALS: BP 132/86; PULSE 94; RESP 18
[2019-03-27] MEDS: morphine 4 MG/ML VIAL IV PRN ×4 (01:53→13:59)
[2019-03-27 04:11] VITALS: BP 142/95; PULSE 85; RESP 18
[2019-03-27] MEDS: PANTOPRAZOLE 40 MG INJ IV SCH ×2 (05:59→17:40)
[2019-03-27] MEDS: D5W-0.45 NACL + KCL 20 MEQ 1,000 ML IV SCH ×2 (05:59→11:17)
[2019-03-27] MEDS: METOCLOPRAMIDE 10 MG TAB PO SCH ×2 (06:02→13:59)
[2019-03-27 07:15] VITALS: BP 137/68; PULSE 98; RESP 20
[2019-03-27] MEDS: LORAZEPAM 0.5 MG TAB PO SCH (08:54)
[2019-03-27] MEDS: SUCRALFATE (100 MG/ML) 10ML CUP PO SCH ×3 (08:55→17:41)
[2019-03-27] MEDS: LISINOPRIL 20 MG TAB PO SCH (08:55)
[2019-03-27] MEDS: LEVOTHYROXINE 25 MCG TAB PO SCH (08:55)
[2019-03-27] MEDS: DOCUSATE SODIUM 100 MG CAP PO SCH (08:55)
[2019-03-27 12:05] VITALS: BP 160/94; PULSE 100; RESP 20
[2019-03-27 15:15] VITALS: BP 147/96; PULSE 103; RESP 22
[2019-03-27] MEDS: traMADol 50 MG TAB PO PRN (17:53)
== END 2019-03-27 18:30 | disposition home or self-care (01) | DRG 641 ==
LOC: E/R 15:21 → 6WM 21:36
PROVIDERS: ADMIT Internal Medicine; ATTEND Internal Medicine
PROC: 0DB68ZX Excision of Stomach, Via Natural or Artificial Opening Endoscopic, Diagnostic (ICD-10-PCS; 2019-03-25)
PROC: 0DB58ZX Excision of Esophagus, Via Natural or Artificial Opening Endoscopic, Diagnostic (ICD-10-PCS; principal; 2019-03-25 16:30)
DX: E86.0 Dehydration (principal); K22.10 Ulcer of esophagus without bleeding; K29.70 Gastritis, unspecified, without bleeding; R11.2 Nausea with vomiting, unspecified; E03.9 Hypothyroidism, unspecified; R10.13 Epigastric pain; I10 Essential (primary) hypertension; R11.15 Cyclical vomiting syndrome unrelated to migraine; K44.9 Diaphragmatic hernia without obstruction or gangrene; Z96.643 Presence of artificial hip joint, bilateral; Z90.49 Acquired absence of other specified parts of digestive tract
CPT/HCPCS: 36415; 74176; 80048; 80053; 81001; 83690; 83735; 84443; 84484; 85025; 88305; 88312; 88313; 93005; 96374; 96375; C9113; J0360; J2060; J2270; J2405; J2765; J3480; J7030; J7040; J7042